=== PATIENT | female | born 1970 | race Caucasian/White ===

== ENCOUNTER 2017-02-21 11:04 | Emergency (ER) | payer OTHER ==
[~2017-02-21] VITALS: Ht 170.2 cm; Wt 110.0 kg
[2017-02-21 11:15] VITALS: BP 177/112; PULSE 62; RESP 15; O2SAT 96
--- NOTE | 2017-02-21 11:25 | ED.REPORT ---
HPI-Rash / Abscess Date of Service Feb 21, 2017 ED Provider: Christopher Sinclair DO Pt is an otherwise healthy 46 year old female who presents to the ED complaining of right nares pain onset 2 days ago. She c/o associated nausea, facial swelling and pressure on her right nares. She denies fever. Pt denies having similar symptoms previously. She reported that all of her teeth are rotting, but denies pain in any specific teeth. Pt has been taking hydrocodone and ibuprofen, but decided to come in today after her symptoms returned this morning after work. Nursing Notes Stated Complaint: ABSCESS/SENT BY URGENT CARE Chief Complaint: Skin Rash/Abscess Nursing Notes Reviewed: Yes Allergies: Coded Allergies: tramadol (Verified Allergy, Intermediate, Nausea,Vomiting, 02/21/17) Scheduled Clindamycin (Clindamycin) 300 Mg Capsule 300 MG PO QID Scheduled PRN Ondansetron ODT (Zofran ODT) 4 Mg Tablet 4 MG PO Q4H PRN PRN For Nausea General Time Seen by MD: 11:20 Chief Complaint Other (Right nares pain) Hx Obtained From: Patient Arrived By: Walk-in Onset Occurred: 5 - 8 hours ago Symptom Duration: Since onset Location: : Other (Nares) Quality: Painful Severity: Current: Moderate Severity: Maximum: Moderate Recent Healthcare: No recent doctor visit, No recent hospitalization Similar Sx Previous: No Past Medical History Past Medical History Bulging disc Denies: Diabetes mellitus, Hypertension Past Surgical History Denies Smoking History Current Every Day Smoker Social History Other Social History: Good social support Ambulatory Status Independent Review of Systems + right nares pain and swelling Constitutional: Denies: Fever Respiratory: Reports: Non-productive cough, Denies: Shortness of breath GI: Reports: Nausea, Vomiting Skin: Reports Swelling Complete sys rev & neg: except as marked. Physical Exam Initial Vital Signs Vital Signs (First) Date Time Temp Pulse Resp B/P Pulse Ox O2 Delivery O2 Flow Rate FiO2 02/21/17 11:15 36.8 62 15 177/112 96 Room Air Initial VS: Reviewed, Vital signs abnormal Head / Eyes: Atraumatic, Normocephalic, PERRL Neck: Supple, Non-tender Respiratory: Breath sounds normal, Clear to auscultation, No respiratory distress Cardiovascular: Regular rate & rhythm, Heart sounds normal, Intact distal pulses Abdomen / GI: Soft, Non-tender Extremities: Vascular intact, Neuro intact Neurologic: Alert, Oriented, Nonfocal Psychiatric: Mood/affect normal, Behavior normal General/Constitutional: Awake, Alert, Cooperative Skin: Atraumatic, Intact ENT: Atraumatic, Airway patent, Mucous membranes moist Dental / Gums: Positive: Decay extensive (multiple cratered out teeth), Dental caries present, Dentition poor, Negative: Dental abscess, Gum swelling, Tender to percussion Right maxillary and infraorbital cellulitus Right nasal cellulitus Small 0.5 cm bulge in inner nasal mucousa along the lateral edge Interpretation & Diagnostics FACE CT: IMPRESSION: 1. Right periorbital soft tissue swelling without evidence of abscess or retro- bulbar involvement. 2. Mildly prominent cervical lymph nodes are nonspecific but likely reactive. Dictated by: Feliberto Tripathi M.D. on 02/21/2017 at 13:24 Lab Results Interpretation Result Diagram: 02/21/17 1200 02/21/17 1200 Test 02/21/17 12:00 White Blood Count 13.4th/mm3 (3.8-10.1) Red Blood Count 5.15mil/mm3 (3.90-5.20) Hemoglobin 14.9g/dL (12.0-15.6) Hematocrit 43.3% (35.0-46.0) Mean Corpuscular Volume 84.1fL (81-100) Mean Corpuscular Hemoglobin 28.9pg (27.0-35.0) Mean Corpuscular Hemoglobin Concent 34.4% (32.0-37.0) Red Cell Distribution Width 13.4% (12.3-15.4) Platelet Count 303bil/L (150-400) Neutrophils (%) (Auto) 80.6% (40-74) Lymphocytes (%) (Auto) 13.2% (14-46) Monocytes (%) (Auto) 5.1% (4-12) Eosinophils (%) (Auto) 0.5% (0-5) Basophils (%) (Auto) 0.3% (0-3) Sodium Level 136mEq/L (134-144) Potassium Level 3.7mEq/L (3.5-5.2) Chloride Level 98mEq/L (97-108) Carbon Dioxide Level 23mmol/L (18-29) Blood Urea Nitrogen 12mg/dL (6-24) Creatinine 0.43mg/dL (0.57-1.00) Estimat Glomerular Filtration Rate 227mL/min (>59) Glucose Level 117mg/dL (60-99) Calcium Level 9.7mg/dL (8.5-10.1) Magnesium Level 1.7mg/dL (1.6-2.6) Total Bilirubin 0.3mg/dL (0.0-1.2) Aspartate Amino Transf (AST/SGOT) 12U/L (0-50) Alanine Aminotransferase (ALT/SGPT) 14U/L (0-32) Alkaline Phosphatase 89U/L (25-150) Total Protein 7.2g/dL (6.4-8.4) Albumin 4.4g/dL (3.4-5.0) Hold Monzon Top Tube Received (Received) Re-Eval/Medical Decision Med Decision/Clinical Course Facial cellulitis, initially seen at urgent care however given the moderate amount of pain in associated vomiting she was sent to the ER. Her labs are reassuring she does have mild leukocytosis however given the severity of her discomfort CT was performed to rule out a deep space infection. This does not seem to be odontogenic based on her dental exam. She will be prescribed clindamycin. She is feeling better. She is tolerating oral intake. She is prescribed clindamycin. Return and follow-up precautions given Source of Hx: Old records Re-Evaluation/Progress #1: Time of Eval: 12:41 Re-Evaluation/Progress Note: Pt rechecked. All questions addressed. Re-Evaluation/Progress #2: Time of Eval: 13:49 Re-Evaluation/Progress Note: Pt rechecked. Informed pt of plan for discharge. Pt understands and agrees with plan for discharge. F/U instructions and RTER warnings given. All questions addressed. Counseled Regarding: Diagnosis, Lab results, Need for follow-up, When/why to return to ED Discharge & Departure Impression: Primary Impression: Facial cellulitis Disposition: Home Discharge Condition All VS Reviewed: Yes Condition: Stable Patient Instructions: Cellulitis (ED) Additional Instructions: You have facial cellulitis. Take Clindamycin as prescribed. Continue your other home medications for pain. Use Zofran as needed for nausea and vomiting. Follow up with your primary care provider in the next few days or repeat evaluation. Return to the Emergency Department if you experience increased pain, shortness of breath, increased swelling, or any other concerning symptoms. Referrals: Jose Carlos Abraham MD (PCP) Breanna Attestation Portions of this note were transcribed by Minh Carson and Jelena Rao. I, Dr. Sinclair personally performed the history, physical exam and medical decision-making; I reviewed and confirmed the accuracy of the information in the transcribed note. Signed by: Minh Carson and Breanna Solano, 02/21/17 and 12:50 copies to: Jose Carlos Abraham MDChristopher Rubin Feb 21, 2017 11:24 Jelena Jackson Feb 21, 2017 11:38 MINH CARSON Feb 21, 2017 12:59
[2017-02-21] MEDS ORDERED: 0.9% Sodium Chloride 1,000 ML IV ONE (11:35)
[2017-02-21] MEDS ORDERED: HYDROmorphone 0.5 mg/0.5 mL iSecure Syringe IVPUSH PRN (11:35)
[2017-02-21] MEDS ORDERED: Ondansetron 2 mg/mL 2 mL Inj IV PRN (11:35)
[2017-02-21 12:15] LABS: BASOPHILS % (AUTO) 0.3 % (0-3); EOSINOPHILS % (AUTO) 0.5 % (0-5); MONOCYTES % (AUTO) 5.1 % (4-12); Mean Corpuscular Hemoglobin 28.9 pg (27.0-35.0); Mean Corpuscular Volume 84.1 fL (81-100); NEUTROPHILS % (AUTO) 80.6 % (40-74); Platelet Count 303 bil/L (150-400)
[2017-02-21 12:35] LABS: Magnesium 1.7 mg/dL (1.6-2.6)
[2017-02-21 13:18] VITALS: BP 159/91; PULSE 91; RESP 16; O2SAT 93
--- NOTE | 2017-02-21 13:45 | DRSVH ---
PROCEDURE: CT FACE WITH CONTRAST ([id number]) INDICATIONS: right sided swelling, concern for deep space infection. TECHNIQUE: After the administration of intravenous contrast, 3.0 mm axial sections acquired from the mid-neck to the frontal sinuses, with coronal reformatting. For radiation dose reduction, the following was use d: automated exposure control. COMPARISON: None. FINDINGS: Image quality: Excellent. Soft tissues: There is a periorbital soft tissue swelling and subcutaneous edema primarily in the in fraorbital region. No discrete fluid collection to suggest an abscess. No intraorbital collections, fat stranding, or extraocular muscle enlargement to suggest intraconal involvement. The globes are intact. There are a few scattered mildly prominent right cervical lymph nodes measuring up to 1.1 cm in short axis at level II which are nonspecific but likely reactive. Vascular: Visualized vascular structures appear patent throughout. Bony vascular foramina and canal s appear normal. Bones: Facial bones appear intact, without fractures, erosions, or destruction. Visualized portions of the skull base and auditory canals also appear normal. Sinuses: Paranasal sinuses are aerated without fluid levels, mucosal thickening, or mucoceles. Mast oid air cells are aerated. IMPRESSION: 1. Right periorbital soft tissue swelling without evidence of abscess or retro-bulbar involvement. 2. Mildly prominent cervical lymph nodes are nonspecific but likely reactive. Dictated by: Feliberto Tripathi M.D. on 02/21/2017 at 13:24 Approved by: Feliberto Tripathi M.D. on 02/21/2017 at 13:43
[2017-02-21] MEDS ORDERED: HYDROcodone-APAP 10-325 mg PO ONE (13:50)
[2017-02-21] MEDS ORDERED: ONDA4TAB9 PO (14:04)
[2017-02-21] MEDS ORDERED: CLIN-78 PO (14:04)
[2017-02-21 14:16] VITALS: BP 154/94; PULSE 76; RESP 16; O2SAT 94
== END 2017-02-21 14:16 | disposition home or self-care (01) ==
LOC: SED 11:04
DX: L03.211 Cellulitis of face (principal); F17.200 Nicotine dependence, unspecified, uncomplicated; Z88.8 Allergy status to other drugs, medicaments and biological substances
CPT/HCPCS: 36415; 70487; 80053; 81025; 82948; 83735; 85025; 96360; 99284; J7030; Q9967